=== PATIENT | male | born 1955 | race Two or more races ===

== ENCOUNTER 2025-05-26 19:48 | Inpatient (IN) | payer MEDICARE, OTHER ==
[~2025-05-26] VITALS: Ht 172.7 cm; Wt 99.1 kg
[2025-05-26 21:56] LABS: PLATELET COUNT (AUTO) 227 K/uL (152-348); RED BLOOD CELL COUNT(AUTO) 5.00 MIL/uL (4.06-5.63); RED CELL DISTRIBUTION WIDTH 13.8 % (12.1-16.2); WHITE BLOOD COUNT (AUTO) 7.5 K/uL (3.6-10.2)
[2025-05-26] MEDS ORDERED: INSU100V28 SUBCUT (22:03)
[2025-05-26] MEDS ORDERED: ACET-3752 PO (22:03)
[2025-05-26] MEDS ORDERED: CARB1TAB33 PO (22:03)
[2025-05-26] MEDS ORDERED: MAGN400O6 PO (22:03)
[2025-05-26] MEDS ORDERED: CHOL100034 PO (22:03)
[2025-05-26] MEDS ORDERED: SENN8.6T19 PO (22:03)
[2025-05-26] MEDS ORDERED: IBUP-2760 PO (22:03)
[2025-05-26] MEDS ORDERED: AMMO385C4 TP (22:03)
[2025-05-26] MEDS ORDERED: AMLO10TA59 PO (22:03)
[2025-05-26] MEDS ORDERED: LISI10TA29 PO (22:03)
[2025-05-26] MEDS ORDERED: ASCO500C18 PO (22:03)
[2025-05-26] MEDS ORDERED: APIX5TAB PO (22:03)
[2025-05-26] MEDS ORDERED: [UNRECOGNIZED DRUG - CODE] PO (22:03)
[2025-05-26] MEDS ORDERED: INSU100V28 SQ (22:03)
[2025-05-26] MEDS ORDERED: FURO20TA4 PO (22:03)
[2025-05-26] MEDS ORDERED: ATOR40TA PO (22:03)
[2025-05-26] MEDS ORDERED: MULT-1045 PO (22:03)
[2025-05-26] MEDS ORDERED: DOCU100C36 PO (22:03)
[2025-05-26] MEDS ORDERED: CARV25TA2 PO (22:03)
[2025-05-26] MEDS ORDERED: AMIO200T72 PO (22:03)
[2025-05-26] MEDS ORDERED: DICL100G61 TP (22:03)
[2025-05-26] MEDS ORDERED: INSU100V7 SQ ×2 (22:03)
[2025-05-26] MEDS ORDERED: [UNRECOGNIZED DRUG - CODE] PO (22:03)
[2025-05-26 22:14] LABS: CREATININE 1.7 mg/dL (0.6-1.3); SODIUM SERUM 141 mmol/L (136-145); UREA NITROGEN, BLOOD 24 mg/dL (7-18)
[2025-05-26 22:20] LABS: ASPARTATE AMINOTRANSFERASE 15 U/L (15-37); TOTAL PROTEIN, SERUM 7.6 g/dL (6.4-8.2)
[2025-05-27] VITALS: BP 146/91
[2025-05-27] MEDS ORDERED: REMEDY ESSENTIAL ZINC PASTE 113 GM TP PRN (00:30)
[2025-05-27] MEDS ORDERED: MAGNESIUM HYDROXIDE 30 ML LIQUID UDC PO PRN ×2 (00:30→20:00)
[2025-05-27] MEDS ORDERED: DEXTROSE 50% 50 ML DISP.SYRIN IV PRN (00:30)
[2025-05-27] MEDS ORDERED: HYDROCODONE/APAP 5-325MG TABLET PO PRN (00:30)
[2025-05-27] MEDS ORDERED: ACETAMINOPHEN 325 MG TABLET PO PRN (00:30)
[2025-05-27] MEDS ORDERED: ONDANSETRON 4 MG/2 ML VIAL IV PRN (00:30)
[2025-05-27] MEDS ORDERED: HUM INSULIN NPH/REG INSULIN HM 70/30 1000 UNITS/10 ML VIAL SQ ONE ×2 (01:15)
[2025-05-27] MEDS: HUM INSULIN NPH/REG INSULIN HM 70/30 1000 UNITS/10 ML VIAL SQ ONE (01:30)
[2025-05-27 02:45] VITALS: BP 153/82; TEMP 97.5; O2SAT 98
[2025-05-27 04:00] VITALS: BP 158/76; TEMP 97.6; O2SAT 93
[2025-05-27] MEDS: PANTOPRAZOLE SODIUM 40 MG TABLET.DR PO SCH (06:48)
[2025-05-27] MEDS: BLOOD SUGAR DIAGNOSTIC 1 EACH STRIP VI SCH (06:50)
[2025-05-27] MEDS: INSULIN REGULAR, HUMAN 1000 UNIT/10 ML VIAL SQ PRN (07:41)
[2025-05-27] MEDS: GABAPENTIN 100 MG CAPSULE PO SCH (10:01)
[2025-05-27] MEDS: SULFAMETH/TRIMETH 800/160 MG TABLET PO SCH (10:01)
[2025-05-27 12:20] VITALS: BP 168/88; TEMP 98.3; O2SAT 95
[2025-05-27] MEDS ORDERED: CHOL2000 PO (12:33)
[2025-05-27 14:53] LABS: *BILIRUBIN,URIN NEGATIVE (NEGATIVE); *BLOOD, URINE NEGATIVE (NEGATIVE); *CLARITY,URINE CLEAR (CLEAR); *COLOR,URINE YELLOW (YELLOW); *KETONES,URINE NEGATIVE (NEGATIVE); *PROTEIN,URINE 2+ (NEGATIVE); *UROBILINOGEN,URINE 0.2 E.U./dl (NORMAL); LEUKOCYTE ESTERASE ,URINE NEGATIVE (NEGATIVE); NITRITE, URINE NEGATIVE (NEGATIVE); UGLUCOSE 1+ (NEGATIVE)
[2025-05-27 15:00] LABS: *CREATININE,URINE 62.2 mg/dL (30-125); *SODIUM RNDM,URINE 98.0 mmol/L (40-220); *URINE TOTAL PROTEIN RANDOM 117.1 mg/dL (<150/24HR)
[2025-05-27 15:19] LABS: SQUAMOUS EPITHELIAL CELL,UR NONE SEEN /HPF (NONE SEEN)
[2025-05-27 16:00] VITALS: BP 169/88; TEMP 98.3; O2SAT 95
[2025-05-27 19:30] VITALS: BP 165/81; TEMP 98.2; O2SAT 96
[2025-05-27] MEDS ORDERED: LACTULOSE 20 G/30 ML LIQUID UDC PO PRN (20:00)
[2025-05-27] MEDS: CARVEDILOL 25 MG TABLET PO SCH (20:41)
[2025-05-27] MEDS: ATORVASTATIN 40 MG TABLET PO SCH (20:41)
[2025-05-27] MEDS: LISINOPRIL 10 MG TABLET PO SCH (20:42)
[2025-05-27] MEDS: APIXABAN 5 MG TABLET PO SCH (20:43)
[2025-05-27] MEDS: INSULIN GLARGINE,HUM 300 UNITS/3 ML CARTRIDGE SQ SCH (20:44)
[2025-05-27] MEDS: CARBIDOPA/LEVODOPA 25-100MG TABLET PO SCH (23:07)
[2025-05-27] MEDS: TEMAZEPAM 15 MG CAPSULE PO PRN (23:10)
[2025-05-28 05:56] LABS: PLATELET COUNT (AUTO) 230 K/uL (152-348); RED BLOOD CELL COUNT(AUTO) 5.13 MIL/uL (4.06-5.63); RED CELL DISTRIBUTION WIDTH 13.8 % (12.1-16.2); WHITE BLOOD COUNT (AUTO) 7.3 K/uL (3.6-10.2)
[2025-05-28 06:16] LABS: CREATINE KINASE, TOTAL 124 U/L (39-308)
[2025-05-28 06:20] LABS: ASPARTATE AMINOTRANSFERASE 19 U/L (15-37); CREATININE 1.3 mg/dL (0.6-1.3); SODIUM SERUM 140 mmol/L (136-145); TOTAL PROTEIN, SERUM 7.6 g/dL (6.4-8.2); UREA NITROGEN, BLOOD 18 mg/dL (7-18)
[2025-05-28 06:22] VITALS: BP 164/91; TEMP 97.9; O2SAT 96
[2025-05-28 07:29] VITALS: BP 157/88; TEMP 97.7; O2SAT 100
[2025-05-28] MEDS: INSULIN REGULAR, HUMAN 1000 UNIT/10 ML VIAL SQ SCH (08:00)
[2025-05-28] MEDS: FUROSEMIDE 20 MG TABLET PO SCH (08:57)
[2025-05-28] MEDS: AMIODARONE HCL 200 MG TABLET PO SCH (09:01)
[2025-05-28] MEDS: SENNOSIDES 1 TABLET PO SCH (09:02)
[2025-05-28] MEDS: DOCUSATE SODIUM 100 MG CAPSULE PO SCH (09:03)
[2025-05-28] MEDS: AMLODIPINE 10 MG TABLET PO SCH (09:04)
[2025-05-28] MEDS: ARGININE/GLUTAMINE/CALCIUM BMB 1 EACH POWD.PACK PO SCH (09:05)
[2025-05-28 11:53] VITALS: BP 143/76; TEMP 98.4; O2SAT 98
[2025-05-28 16:00] VITALS: BP 132/62; TEMP 97.7; O2SAT 98
[2025-05-28 19:50] VITALS: BP 138/77; TEMP 98.6; O2SAT 96
[2025-05-29 06:54] VITALS: BP 144/79; TEMP 97.9; O2SAT 97
[2025-05-29 10:54] VITALS: BP 117/62
[2025-05-29 11:08] LABS: PTH, INTACT 25 pg/mL (15-65)
[2025-05-29 12:00] VITALS: BP 124/65; TEMP 98.3; O2SAT 96
[2025-05-29 15:30] VITALS: BP 117/66; TEMP 97.9; O2SAT 98
[2025-05-29] MEDS: SILVER SULFADIAZINE 1% CREAM 25 GM TUBE TP SCH (15:52)
[2025-05-29 21:09] VITALS: BP 107/68; TEMP 98.6; O2SAT 93
[2025-05-30 06:40] VITALS: BP 143/81; TEMP 98.6; O2SAT 99
[2025-05-30 12:23] VITALS: BP 123/68; TEMP 97.6; O2SAT 96
[2025-05-30 16:00] VITALS: BP 129/69; TEMP 99; O2SAT 96
[2025-05-31 14:09] LABS: A/G RATIO 0.7 (0.7-1.7); BETA GLOBULIN 1.2 g/dL (0.7-1.3); GLOBULIN, TOTAL 4.2 g/dL (2.2-3.9); M-SPIKE Not Observed g/dL (Not Observed); PROTEIN, TOTAL 7.0 g/dL (6.0-8.5)
== END 2025-05-30 17:43 | DRG 603 ==
LOC: ER 19:48 → MEDSURG3 05-27 00:10
PROVIDERS: ADMIT Nurse Practitioner Acute Care; ATTEND Internal Medicine
DX: L03.115 Cellulitis of right lower limb (principal); I69.351 Hemiplegia and hemiparesis following cerebral infarction affecting right dominant side; G20.A1 Parkinson's disease without dyskinesia, without mention of fluctuations; I50.9 Heart failure, unspecified; Z79.01 Long term (current) use of anticoagulants; I13.0 Hypertensive heart and chronic kidney disease with heart failure and stage 1 through stage 4 chronic kidney disease, or unspecified chronic kidney disease; E11.51 Type 2 diabetes mellitus with diabetic peripheral angiopathy without gangrene; N18.32 Chronic kidney disease, stage 3b; E03.9 Hypothyroidism, unspecified; J45.909 Unspecified asthma, uncomplicated; L97.311 Non-pressure chronic ulcer of right ankle limited to breakdown of skin; L97.321 Non-pressure chronic ulcer of left ankle limited to breakdown of skin; M25.571 Pain in right ankle and joints of right foot; Z79.4 Long term (current) use of insulin; E11.22 Type 2 diabetes mellitus with diabetic chronic kidney disease; Z79.899 Other long term (current) drug therapy; E78.5 Hyperlipidemia, unspecified; G89.29 Other chronic pain; I48.91 Unspecified atrial fibrillation; I87.8 Other specified disorders of veins
CPT/HCPCS: 36415; 73600; 76770; 83605; 83735; 83970; 84100; 84155; 84165; 84300; 84443; 84550; 85025; 87040; A4663; A6213; G0378; J1815